=== PATIENT | female | born 1940 | race Caucasian/White ===

== ENCOUNTER 2017-06-19 03:48 | Inpatient (IN) | payer OTHER ==
[~2017-06-19] VITALS: Ht 165.1 cm; Wt 74.4 kg
[2017-06-19] VITALS (16 sets, daily range): BP systolic 110–176; BP diastolic 53–75
[~2017-06-19 03:48] MED LIST: ADVAIR 250-501 EACH INH; ALBUTEROL INHAL17 GM IH; AMITRIPTYLINE H25 M2 PO; AVELOX 400 MG400 M1 PO; B-100 COMPLEX1 EAC1 PO; COUMADIN7.5 MG; ELAVIL PO; ENOXAPARIN60 MG/0.6; FLEXERIL PO; HYDROCODON-ACE1 EAC3; HYDROCODON-ACE1 EAC5 PO; IRON159 MG; K-DUR10 MEQ PO; LOSARTAN-HCTZ1 EAC1 PO; LYRICA 75 MG CA75 MG PO; MICARDIS40 MG PO; MULTIVITAMINS; NORCO 5-325 TA1 EACH PO; OMEPRAZOLE 20 M20 M1 PO; PERCOCET 5-3251 EACH PO; PREDNISONE 20 M20 M1 PO; PREDNISONE50 MG PO; PROAIR HFA8.5 GM INH; SEVELLA; SLOW FE142 MG PO; TIZANIDINE HCL2 M1 PO; XANAX 0.25 MG0.25 MG PO; XANAX 0.5 MG0.5 M1 PO; ZOLOFT; ZOLOFT 50 MG TA50 MG PO
[2017-06-19] MEDS ORDERED: VANCOCIN 250 M250 M1 PO (04:06)
[2017-06-19] MEDS ORDERED: SYMBICORT160 MCG/4. INH (04:07)
[2017-06-19] MEDS ORDERED: ASPIRIN81 M2 (04:08)
[2017-06-19] MEDS ORDERED: CELEXA20 MG PO (04:08)
[2017-06-19] MEDS ORDERED: BAYER CHEWABLE81 MG PO (04:09)
[2017-06-19] MEDS ORDERED: NORVASC5 MG PO (04:10)
[2017-06-19] MEDS ORDERED: SPIRIVA INH (04:11)
[2017-06-19] MEDS ORDERED: LIPITOR 20 MG T20 M1 PO (04:12)
[2017-06-19] MEDS ORDERED: FLORANEX TABLE1 EACH PO (04:13)
[2017-06-19] MEDS ORDERED: POTASSIUM20 (04:14)
[2017-06-19] MEDS ORDERED: COREG6.25 MG PO (04:15)
[2017-06-19] MEDS ORDERED: UNICOMPLEX M TA1 TA1 PO (04:16)
[2017-06-19] MEDS ORDERED: BUMETANIDE0.25 MG/1 PO (04:19)
[2017-06-19 04:22] LABS: INFLUENZA A ANTIGEN None Detected (None Detect); INFLUENZA B ANTIGEN None Detected (None Detect)
[2017-06-19 04:28] LABS: HCO3 35.4 mmol/L (22.0-26.0); PO2 83.1 mmHg (75.0-100.0)
[2017-06-19 04:30] LABS: HEMATOCRIT 35.1 % (37.0-47.0); HEMOGLOBIN 11.1 gm/dL (12.0-15.0); MCH 30.9 pg (26.0-34.0); MCHC 31.7 g/dL (28.0-37.0); MCV 97.4 fL (80.0-100.0); MPV 8.4 fl. (7.2-11.1); NUCLEATED RBCS 0 /100WBC; PLATELET COUNT* 301 thou/uL (150-400); RDW-CV 15.9 % (10.5-14.5); WBC 13.9 thou/uL (4.0-11.0)
[2017-06-19 04:33] LABS: pH 7.222 (7.340-7.450)
[2017-06-19 04:39] LABS: ANION GAP 3 mmol/L (7-16); BUN 9 mg/dL (7-18); CALCIUM 8.3 mg/dL (8.5-10.1); CHLORIDE 100 mmol/L (98-107); CO2 35 mmol/L (21-32); CREATININE 0.6 mg/dL (0.6-1.3); GLUCOSE 152 mg/dL (70-99); POTASSIUM 4.6 mmol/L (3.5-5.1); SODIUM 138 mmol/L (136-145)
[2017-06-19 04:50] LABS: ALBUMIN 3.1 g/dL (3.4-5.0); ALKALINE PHOSPHATASE 81 U/L (46-116); NT-PRO BRAIN NAT PEPTIDE 386 pg/mL (<300); SGOT 23 U/L (15-37); SGPT 27 U/L (30-65); TOTAL BILIRUBIN 0.2 mg/dL (<0.1-1.0); TOTAL PROTEIN 6.6 g/dL (6.4-8.2); TROPONIN-I LEVEL <0.06 ng/mL (<0.06)
[2017-06-19 05:12] LABS: ABSOLUTE EOSINOPHILS 0.1 thou/uL (0.0-0.7); ABSOLUTE LYMPHOCYTES 0.7 thou/uL (0.8-5.3); ABSOLUTE MONOCYTES 0.7 thou/uL (0.0-1.2); ABSOLUTE NEUTROPHILS 12.4 thou/uL (1.6-8.1); PLATELET ESTIMATE ADEQUATE
[2017-06-19 11:23] LABS: URINE BILIRUBIN NEGATIVE (Negative); URINE BLOOD 1+ (Negative); URINE CLARITY CLEAR; URINE COLOR YELLOW; URINE GLUCOSE-RANDOM NEGATIVE (Negative); URINE KETONES NEGATIVE (Negative); URINE LEUKOCYTES-REFLEX NEGATIVE (Negative); URINE NITRITE-REFLEX NEGATIVE (Negative); URINE PROTEIN 1+ (Negative); URINE SPECIFIC GRAVITY 1.015 (1.005-1.030); URINE UROBILINOGEN 0.2 E.U./dl (0.2-1.0)
[2017-06-19 11:30] LABS: BACTERIA-REFLEX 1-9 Few /HPF (None Seen); HYALINE CASTS 0-3 Few /LPF (None Seen); MUCUS 0-3 Light strn/LPF (None Seen); SQUAMOUS 0-3 Few /LPF (0-3); URINE RBC 3-10 Few /HPF (0-2); URINE WBC-REFLEX 0-5 Rare /HPF (0-5)
[2017-06-19 11:31] LABS: CRYSTALS None Seen /LPF (None Seen)
[2017-06-19 11:36] LABS: BE 1.3 mmol/L (-2 to +3); HCO3 30.3 mmol/L (22.0-26.0); PO2 102.2 mmHg (75.0-100.0)
[2017-06-19 11:38] LABS: pH 7.245 (7.340-7.450)
[2017-06-19 11:39] LABS: PCO2 71.4 mmHg (35.0-45.0)
[2017-06-20] VITALS (7 sets, daily range): BP systolic 125–173; BP diastolic 53–91
[2017-06-20 04:07] LABS: ABSOLUTE LYMPHOCYTES 0.5 thou/uL (0.8-5.3); ABSOLUTE MONOCYTES 0.1 thou/uL (0.0-1.2); ABSOLUTE NEUTROPHILS 5.1 thou/uL (1.6-8.1); BASOPHILS 0.1 %; HEMATOCRIT 30.4 % (37.0-47.0); HEMOGLOBIN 9.9 gm/dL (12.0-15.0); MCH 31.5 pg (26.0-34.0); MCHC 32.6 g/dL (28.0-37.0); MCV 96.4 fL (80.0-100.0); MONOCYTES 2.2 %; MPV 8.3 fl. (7.2-11.1); NUCLEATED RBCS 0 /100WBC; PLATELET COUNT* 257 thou/uL (150-400); POLYS 89.7 %; RBC 3.16 mil/uL (4.20-5.00); RDW-CV 15.9 % (10.5-14.5); WBC 5.7 thou/uL (4.0-11.0)
[2017-06-20 04:09] LABS: CALCIUM 8.8 mg/dL (8.5-10.1); CREATININE 0.6 mg/dL (0.6-1.3); POTASSIUM 4.4 mmol/L (3.5-5.1)
--- NOTE | 2017-06-20 07:52 | CON ---
[address] [address] CONSULTATION Name: YOUMARIPOSAJohn LUA Room: [address] IN .R.#: [id number] Admission: 06/19/17 Attend Phys: Payam Mendez MD Discharge: Date of : 40 Report #: [id number] THIS REPORT FOR: //name// CC: Payam Andrade HISTORY OF PRESENT ILLNESS: The patient is a 77-year-old woman who has a history of severe COPD, was brought in with complaints of increasing shortness of breath. She had some nausea at home. I did see the patient this morning. The family currently is not available. The patient is very sleepy, keeps falling asleep, feeling not able to participate. According to the notes, she apparently was hospitalized recently with pneumonia and COPD exacerbation. This was back in April. He was also treated for C. difficile colitis. She was just diagnosed again with pneumonia and was started on some outpatient antibiotics. She is having some nausea, was brought into Emergency Department, was seen there. According to the ED notes, was extremely lethargic. She was on a couple of liters of oxygen. Arterial blood gases did reveal marked hypercapnia with a pCO2 of 88, with a pH of 7.22 on 4 liters. Subsequently, she did have a CT angiogram done of her chest. It shows emphysematous changes. No pulmonary emboli were noted. She was placed in the Intensive Care Unit. She was on BiPAP. At the time I saw her, they have taken off the BiPAP in the hope she could take some breakfast. Again, she is not very responsive. Dr. Mendez's notes indicate that apparently she has been on hospice care. It is not clear if that was active or not. She has also been in [place] recently, not clear hospital stay was there or not. She does have a history of COPD. History also of hypertension, prior history of pulmonary emboli, was on chronic anticoagulation therapy. She also has a history of lung cancer which was diagnosed in 2011. It is not clear what treatment she did undergo. MEDICATIONS: Information I have currently available, it appears her medications at home are potassium, p.r.n. alprazolam, Lyrica, p.r.n. hydrocodone, oral vancomycin, Symbicort 160/4.5 two puffs twice a day, Celexa, aspirin, Spiriva, Norvasc, Lipitor, acidophilus, Coreg, Bumex. It does not appear she is on anticoagulation therapy at this time. ALLERGIES: CODEINE. SOCIAL HISTORY: Does have a history of tobacco abuse. Unknown if she was still smoking or not. In 2012, she had been up to 3 packs of cigarettes per day. FAMILY HISTORY: Unable to obtain from the patient. REVIEW OF SYSTEMS: Unable [place] [address] CONSULTATION Name: MARIPOSA ORTA Room: [address] IN [facility]#: [id number] Admission: 06/19/17 Attend Phys: Payam Mendez MD Discharge: Date of : 40 Report #: [id number] PHYSICAL EXAMINATION: GENERAL: Appearance of an elderly woman. She is extremely lethargic. She is in no acute distress. Does keep falling asleep when stimulated. She is on O2 via nasal cannula. SKIN: Warm and dry. O2 saturations in the high 90s, heart rates in the low 70s. She is an elderly woman. No acute distress. HEENT: Head is normocephalic. Mucous membranes do look dry. NECK: Negative for adenopathy. HEART: Tones are distant, but appear regular. She has a grade 2/6 systolic murmur. No S3 is heard. LUNGS: Show breath sounds to be diminished. She does look kyphotic. Has a few bibasilar crackles. Prolonged expiratory phase. She does have expiratory wheezes heard. ABDOMEN: Soft. Does not appear to have any hepatosplenomegaly. No guarding or rebound tenderness. EXTREMITIES: Thin without edema. Does have some muscle wasting. No clubbing. Pulses are present. NEUROLOGIC: She is extremely lethargic. We will spontaneously move her extremities. LABORATORY AND X-RAY FINDINGS: Studies were reviewed. I did have a CT angiogram done of her chest. No pulmonary emboli were noted, however, she does have respiratory motion noted. Does have enlargement of the pulmonary arteries noted suggesting that she did have some pulmonary artery hypertension. Emphysematous changes are noted. Evidence of old calcified granulomatous disease. She does have some atelectatic changes seen in left lower lobe area. On her chemistry, her BUN is 9, creatinine 0.6, potassium 4.6, sodium 138. ProBNP 388. Troponins unremarkable. Albumin 3.1. No coag studies done. White blood cell count 13,900, hemoglobin 11.1, hematocrit 35.1, platelets are normal. Influenza screen was negative. Arterial blood gases done this morning on 4 liters prior to going on BiPAP, she had a pH 7.22, pCO2 of 88, pO2 of 83, bicarbonate is 35, with a saturation of 93%. Blood cultures have been sent. IMPRESSION: 1. Acute respiratory failure, superimposed on chronic respiratory failure. May have a lower respiratory tract infection. Early pneumonia is possible. May also have a viral infection. 2. Chronic obstructive pulmonary disease, based on history does appear to have severe disease. Long-term prognosis is guarded. 3. History of lung cancer diagnosed in 2011. Path at that time showed a poorly differentiated malignancy. Details of any treatment not clear nor available. 4. Anemia. 5. Overall appears prognosis certainly guarded. She is a do not resuscitate. Reportedly, has been on hospice care at one point. It is not clear if [place] [address] CONSULTATION Name: MARIPOSA ORTA Room: [address] IN [facility].#: [id number] Admission: 06/19/17 Attend Phys: Payam Mendez MD Discharge: Date of : 40 Report #: [id number] RECOMMENDATIONS: 1. Continue IV steroids and inhaled bronchodilator therapy. 2. We will also add inhaled Brovana since she was on Symbicort at home. 3. Follow up blood gases on the BiPAP. 4. Okay with me to transfer out of the Intensive Care Unit. Since she is a DNR, is not to be intubated, could probably meet her needs on the floor. 5. Depending on how she does, may need to revisit goals of care. <ELECTRONICALLY SIGNED> By: Charity Back MD 06/20/17 0752 [id number] [id number] Back, /lacy
[2017-06-20 10:08] LABS: HCO3 28.5 mmol/L (22.0-26.0); PCO2 42.4 mmHg (35.0-45.0); pH 7.445 (7.340-7.450)
[2017-06-20 10:16] LABS: PO2 59.2 mmHg (75.0-100.0)
--- NOTE | 2017-06-20 15:34 | EKG ---
[place] [address] ELECTROCARDIOGRAM REPORT Name: MARIPOSA ORTA Room: [address] ADM IN .R.#: [id number] Admission: 06/19/17 Attend Phys: Payam Mendez MD Discharge: Date of : 40 Report #: [id number] THIS REPORT FOR: //name// [facility] ED Test Date: 2017-06-19 Test Time: 04:01:16 Pat Name: MARIPOSA ORTA Department: Room: [facility] Gender: F Pull Over: BD : 1940 Requested By: Ro Granado Order Number: [id number] MD: Edwin Villa Measurements Intervals [place] Rate: 96 P: 80 [place]: 202 QRS: -6 QRSD: 130 T: 151 QT: 357 QTc: 452 Interpretive Statements Sinus rhythm Left bundle branch block Compared to ECG 01/15/2012 12:49:38 Left bundle-branch block now present Electronically Signed On 06-20-2017 15:34:30 PLASTERER JOURNEYMAN by Edwin Villa [email or web address] <ELECTRONICALLY SIGNED> By: Edwin Villa MD, FACC 06/20/17 1534 0401 0401 Edwin Villa MD, [facility] /EPI
[2017-06-21] VITALS: BP 139/70
[2017-06-21 04:00] VITALS: BP 142/76
[2017-06-21 04:53] LABS: ABSOLUTE LYMPHOCYTES 0.5 thou/uL (0.8-5.3); ABSOLUTE MONOCYTES 0.2 thou/uL (0.0-1.2); ABSOLUTE NEUTROPHILS 6.6 thou/uL (1.6-8.1); BASOPHILS 0.1 %; HEMATOCRIT 29.9 % (37.0-47.0); HEMOGLOBIN 9.9 gm/dL (12.0-15.0); LYMPHOCYTES 6.9 %; MCH 31.6 pg (26.0-34.0); MCHC 33.1 g/dL (28.0-37.0); MCV 95.3 fL (80.0-100.0); MONOCYTES 2.8 %; MPV 8.4 fl. (7.2-11.1); NUCLEATED RBCS 0 /100WBC; PLATELET COUNT* 260 thou/uL (150-400); POLYS 90.2 %; RBC 3.14 mil/uL (4.20-5.00); RDW-CV 15.9 % (10.5-14.5); WBC 7.4 thou/uL (4.0-11.0)
[2017-06-21 04:54] LABS: CALCIUM 8.9 mg/dL (8.5-10.1); CREATININE 0.6 mg/dL (0.6-1.3); POTASSIUM 4.2 mmol/L (3.5-5.1)
[2017-06-21 08:30] VITALS: BP 173/77
[2017-06-21 11:25] VITALS: BP 154/88
[2017-06-21 16:00] VITALS: BP 158/73
[2017-06-21 20:30] VITALS: BP 164/66
[2017-06-22] VITALS (7 sets, daily range): BP systolic 127–181; BP diastolic 59–87
[2017-06-22 04:45] LABS: ABSOLUTE LYMPHOCYTES 0.4 thou/uL (0.8-5.3); ABSOLUTE MONOCYTES 0.2 thou/uL (0.0-1.2); ABSOLUTE NEUTROPHILS 5.7 thou/uL (1.6-8.1); BASOPHILS 0.1 %; HEMATOCRIT 32.9 % (37.0-47.0); HEMOGLOBIN 10.7 gm/dL (12.0-15.0); LYMPHOCYTES 6.3 %; MCH 31.1 pg (26.0-34.0); MCHC 32.4 g/dL (28.0-37.0); MCV 95.7 fL (80.0-100.0); MONOCYTES 3.1 %; MPV 8.2 fl. (7.2-11.1); NUCLEATED RBCS 0 /100WBC; PLATELET COUNT* 277 thou/uL (150-400); POLYS 90.5 %; RBC 3.44 mil/uL (4.20-5.00); RDW-CV 15.8 % (10.5-14.5); WBC 6.3 thou/uL (4.0-11.0)
[2017-06-22 05:09] LABS: CALCIUM 8.6 mg/dL (8.5-10.1); CREATININE 0.6 mg/dL (0.6-1.3)
[2017-06-23] VITALS: BP 142/68
[2017-06-23 02:08] LABS: ADENOVIRUS Negative (Negative); INFLUENZA A Negative (Negative); INFLUENZA B Negative (Negative); METAPNEUMOVIRUS Negative (Negative); PARAINFLUENZA 1 Negative (Negative); PARAINFLUENZA 2 Negative (Negative); PARAINFLUENZA 3 Negative (Negative); RHINOVIRUS Negative (Negative); RSV A Negative (Negative); RSV B Negative (Negative)
[2017-06-23 03:51] VITALS: BP 146/60
[2017-06-23 07:30] VITALS: BP 162/87
[2017-06-23] MEDS ORDERED: LISINOPRIL20 MG PO (09:12)
[2017-06-23] MEDS ORDERED: PROTONIX40 M2 PO (09:13)
[2017-06-23 11:30] VITALS: BP 137/65
[2017-06-23] MEDS ORDERED: PREDNISONE 10 M10 MG PO (13:32)
[2017-06-23] MEDS ORDERED: PROTONIX40 M3 PO (14:22)
[2017-06-23 14:27] VITALS: BP 137/65
== END 2017-06-23 16:40 | disposition home or self-care (01) | DRG 177 ==
LOC: M.ERS 03:48 → M.TBA-ER 05:04 → M.2W 05:04 → M.ICU 07:22 → M.2W 06-20 06:08
PROVIDERS: Emergency Medicine; Internal Medicine Pulmonary Disease; ADMIT Internal Medicine
PROC: 5A09357 Assistance with Respiratory Ventilation, Less than 24 Consecutive Hours, Continuous Positive Airway Pressure (ICD-10-PCS; principal; 2017-06-19)
PROC: 5A09357 Assistance with Respiratory Ventilation, Less than 24 Consecutive Hours, Continuous Positive Airway Pressure (ICD-10-PCS; 2017-06-20)
PROC: 5A09357 Assistance with Respiratory Ventilation, Less than 24 Consecutive Hours, Continuous Positive Airway Pressure (ICD-10-PCS; 2017-06-21)
DX: J15.6 Pneumonia due to other Gram-negative bacteria (principal); J96.20 Acute and chronic respiratory failure, unspecified whether with hypoxia or hypercapnia; E87.2 Acidosis; R65.10 Systemic inflammatory response syndrome (SIRS) of non-infectious origin without acute organ dysfunction; J44.0 Chronic obstructive pulmonary disease with (acute) lower respiratory infection; I10 Essential (primary) hypertension; G62.9 Polyneuropathy, unspecified; D64.9 Anemia, unspecified; I27.20 Pulmonary hypertension, unspecified; Z66 Do not resuscitate; Z99.81 Dependence on supplemental oxygen; Z79.82 Long term (current) use of aspirin; Z79.899 Other long term (current) drug therapy; Z90.711 Acquired absence of uterus with remaining cervical stump; Z88.6 Allergy status to analgesic agent; Z85.118 Personal history of other malignant neoplasm of bronchus and lung; Z86.711 Personal history of pulmonary embolism; Z72.0 Tobacco use

== ENCOUNTER 2017-08-08 08:53 | Inpatient (IN) | payer OTHER, MEDICAID ==
[~2017-08-08] VITALS: Ht 170.2 cm; Wt 73.6 kg
[~2017-08-08 08:53] MED LIST changes: +ASPIRIN81 M2; +BAYER CHEWABLE81 MG PO; +BUMETANIDE0.25 MG/1 PO; +CELEXA20 MG PO; +COREG6.25 MG PO; +FLORANEX TABLE1 EACH PO; +LIPITOR 20 MG T20 M1 PO; +LISINOPRIL20 MG PO; +NORVASC5 MG PO; +POTASSIUM20; +PREDNISONE 10 M10 MG PO; +PROTONIX40 M2 PO; +PROTONIX40 M3 PO; +SPIRIVA INH; +SYMBICORT160 MCG/4. INH; +UNICOMPLEX M TA1 TA1 PO; +VANCOCIN 250 M250 M1 PO
[2017-08-08 08:55] VITALS: BP 128/78
[2017-08-08 09:21] LABS: BE 9.3 mmol/L (-2 to +3); HCO3 37.3 mmol/L (22.0-26.0); PCO2 70.2 mmHg (35.0-45.0); pH 7.343 (7.340-7.450)
[2017-08-08 09:22] LABS: PO2 59.4 mmHg (75.0-100.0)
[2017-08-08 09:31] LABS: ABSOLUTE EOSINOPHILS 0.1 thou/uL (0.0-0.7); ABSOLUTE LYMPHOCYTES 0.6 thou/uL (0.8-5.3); ABSOLUTE MONOCYTES 0.6 thou/uL (0.0-1.2); ABSOLUTE NEUTROPHILS 4.2 thou/uL (1.6-8.1); BASOPHILS 0.8 %; EOSINOPHILS 2.2 %; HEMOGLOBIN 10.8 gm/dL (12.0-15.0); LYMPHOCYTES 10.6 %; MCH 32.6 pg (26.0-34.0); MCHC 32.8 g/dL (28.0-37.0); MCV 99.6 fL (80.0-100.0); MONOCYTES 11.4 %; MPV 8.4 fl. (7.2-11.1); NUCLEATED RBCS 0 /100WBC; PLATELET COUNT* 266 thou/uL (150-400); RBC 3.31 mil/uL (4.20-5.00); RDW-CV 14.3 % (10.5-14.5); WBC 5.6 thou/uL (4.0-11.0)
[2017-08-08 09:38] LABS: ANION GAP < 0 mmol/L (7-16); BUN 7 mg/dL (7-18); CALCIUM 8.6 mg/dL (8.5-10.1); CHLORIDE 103 mmol/L (98-107); CO2 39 mmol/L (21-32); CREATININE 0.5 mg/dL (0.6-1.3); GLUCOSE 96 mg/dL (70-99); INR 0.9; POTASSIUM 4.4 mmol/L (3.5-5.1); SODIUM 139 mmol/L (136-145)
[2017-08-08] MEDS ORDERED: PROTONIX 20 MG20 M1 PO (09:41)
[2017-08-08] MEDS ORDERED: CARVEDILOL12.5 MG PO (09:41)
[2017-08-08] MEDS ORDERED: PROAIR HFA8.5 GM INH (09:42)
[2017-08-08] MEDS ORDERED: PROBIOTIC1 EAC4 PO (09:42)
[2017-08-08 09:49] LABS: ALBUMIN 2.9 g/dL (3.4-5.0); ALKALINE PHOSPHATASE 67 U/L (46-116); LIPASE 157 U/L (73-393); NT-PRO BRAIN NAT PEPTIDE 319 pg/mL (<300); SGOT 20 U/L (15-37); SGPT 16 U/L (30-65); TOTAL BILIRUBIN 0.2 mg/dL (<0.1-1.0); TOTAL PROTEIN 6.4 g/dL (6.4-8.2); TROPONIN-I LEVEL <0.06 ng/mL (<0.06)
[2017-08-08 10:57] LABS: URINE BILIRUBIN NEGATIVE (Negative); URINE BLOOD NEGATIVE (Negative); URINE CLARITY CLEAR; URINE COLOR YELLOW; URINE GLUCOSE-RANDOM NEGATIVE (Negative); URINE KETONES NEGATIVE (Negative); URINE LEUKOCYTES-REFLEX NEGATIVE (Negative); URINE NITRITE-REFLEX NEGATIVE (Negative); URINE PROTEIN NEGATIVE (Negative); URINE SPECIFIC GRAVITY 1.015 (1.005-1.030); URINE UROBILINOGEN 0.2 E.U./dl (0.2-1.0)
[2017-08-08 12:14] VITALS: BP 131/66
[2017-08-08 12:25] VITALS: BP 152/76
--- NOTE | 2017-08-08 18:23 | NUR ---
PATIENT ARRIVED FROM ER THIS AFTERNOON. PATIENT SETTLED TO ROOM. PATIENT IS CONFUSED. HISTORY OBTAINED FROM DAUGHTERS. ASSESSMENT AND VITALS COMPLETED AND DOCUMENTED. PATIENT DENIES ANY PAIN. PATIENT IS ON BIPAP AND HAS BEEN COMPLIANT WITH IT. PATIENT DID EAT SMALL AMOUNT OF DINNER AND WAS ON 4L/NC DURING THAT TIME. PATIENT HAS BEEN UP STANDBY ASSIST TO COMMODE. PATIENT DENIES ANY NEEDS AT THIS TIME. CALL LIGHT WITHIN REACH. WILL CONTINUE TO MONITOR.
[2017-08-09] VITALS: BP 156/95
[2017-08-09 04:00] VITALS: BP 182/101
[2017-08-09 04:49] LABS: HEMATOCRIT 36.5 % (37.0-47.0); MCH 32.1 pg (26.0-34.0); MCV 97.2 fL (80.0-100.0); MPV 9.2 fl. (7.2-11.1); RBC 3.75 mil/uL (4.20-5.00); RDW-CV 14.3 % (10.5-14.5); WBC 4.3 thou/uL (4.0-11.0)
[2017-08-09 04:56] LABS: ALBUMIN 3.2 g/dL (3.4-5.0); CALCIUM 9.6 mg/dL (8.5-10.1); CREATININE 0.5 mg/dL (0.6-1.3); MAGNESIUM 1.7 mg/dL (1.8-2.4); POTASSIUM 4.2 mmol/L (3.5-5.1); TOTAL BILIRUBIN 0.3 mg/dL (<0.1-1.0); TOTAL PROTEIN 6.5 g/dL (6.4-8.2)
--- NOTE | 2017-08-09 06:17 | EKG ---
[place] [address] ELECTROCARDIOGRAM REPORT Name: OYUMARIPOSA HOBSON Room: [address] ADM IN .R.#: [id number] Admission: 08/08/17 Attend Phys: Roxanne Tidwell MD Discharge: Date of : 40 Report #: [id number] THIS REPORT FOR: //name// [facility] ED Test Date: 2017-08-08 Test Time: 08:57:33 Pat Name: MARIPOSA ORTA Department: Room: [facility] Gender: F Associate Director Of Development: Piotr DOWLING : 1940 Requested By: Valentino Ashley Order Number: [id number] MD: Edwin Villa Measurements Intervals [place] Rate: 87 P: 38 [place]: 170 QRS: -18 QRSD: 131 T: 147 QT: 381 QTc: 459 Interpretive Statements Sinus rhythm Atrial premature complex Left bundle branch block Compared to ECG 06/19/2017 04:01:16 Atrial premature complex(es) now present Electronically Signed On 08-09-2017 6:17:34 BATTERY INSTALLER by Edwin Villa [email or web address] <ELECTRONICALLY SIGNED> By: Edwin Villa MD, FACC 08/09/17 0617 0857 0857 Edwin Villa MD, FAC /EPI
--- NOTE | 2017-08-09 07:16 | CON ---
[address] [address] CONSULTATION Name: MARIPOSA ORTA Room: [address] IN M.R.#: [id number] Admission: 08/08/17 Attend Phys: Roxanne Tidwell MD Discharge: Date of : 40 Report #: [id number] THIS REPORT FOR: //name// CC: Roxanne Andrade DATE OF SERVICE: 08/08/2017 ATTENDING PHYSICIAN: Roxanne Tidwell MD LOCATION: Room [facility]. INDICATION FOR CONSULTATION: Acute hypercarbic respiratory failure, COPD, oxygen dependent. HISTORY OF PRESENT ILLNESS: The patient is a 77-year-old female who has been on oxygen at home at 3 liters for the last 3-4 years. She has been more short of breath for the last 2 weeks, it appears. She was admitted on 06/19 and then discharged home right around from Dr. Bcak' service. The patient was on a prednisone taper and also on oxygen and inhaled bronchodilators. Not certain how compliant the patient was. The patient's daughters found her smoking cigarettes in the bathroom over the past several days. The patient tells me she has been off cigarettes for the last 2-3 months. She is more short of breath for the last several days. Denies any cough or purulent sputum. She has been more short of breath and wheezing. She does feel more comfortable on the BiPAP machine at this time. I was asked to see her. She has no sick or ill contacts. No flu contacts. She states she is up to date on her flu shots and/or pneumonia shots. PAST MEDICAL HISTORY: She has a history of CO2 retention, respiratory failure. When she was in on 06/19, she was on BiPAP. She did not get sent home on Trilogy. She states she would not be compliant with this. She is on oxygen at 3 L at home. ALLERGIES: SHE HAS ALLERGIES OR INTOLERANCE TO CODEINE. CURRENT MEDICATIONS: Include alprazolam 0.5 mg t.i.d. p.r.n. agitation, potassium chloride, K-Dur 1 tablet daily, pregabalin or Lyrica 75 mg daily, iron 65 mg p.o. daily, vancomycin 125 mg p.o. daily, citalopram 20 mg b.i.d., aspirin chewable is 81 mg a day, Bumex 2.5 mg in 10 mL aerosolized p.r.n. shortness of air, also on Protonix 20 mg daily, also carvedilol 6.25 mg b.i.d., albuterol sulfate, ProAir inhaler 2 puffs 3-4 times a day, Lactobacillus probiotic 1 capsule daily. She is off hydrocodone, budesonide, Symbicort, atorvastatin, lisinopril [place] [address] CONSULTATION Name: MARIPOSA ORTA Room: [address] IN [facility]#: [id number] Admission: 08/08/17 Attend Phys: Roxanne Tidwell MD Discharge: Date of : 40 Report #: [id number] FAMILY HISTORY: Negative for premature cardiopulmonary disease. PAST MEDICAL HISTORY: She had pneumonia, COPD in 05/2017 around 06/19. She has had a remote history of lung cancer. She has even had radiation or chemotherapy to either side of her lung sometime in 2011. Also has a remote history of pulmonary emboli. Again, I am not sure the particulars. FAMILY HISTORY: Negative for premature cardiopulmonary disease. SOCIAL HISTORY: She lives with her daughters. She has been on hospice. She is a DNI, no intubation. She may want a brief CPR, defibrillation noted. REVIEW OF SYSTEMS: A 14-point review of systems was reviewed and negative except for pertinent positives noted in HPI. PHYSICAL EXAMINATION: GENERAL: This is a slightly confused 77-year-old female who is leaving her BiPAP on. VITAL SIGNS: Blood pressure is 130/66 on no pressors, heart rate 72, respirations 14 over backup rate of 14, O2 sat on 35% is 93%. She is afebrile, temperature 37.2 degrees. HEENT: Unremarkable. Nares and pharynx otherwise is clear. NECK: Supple without nodes. No increase in jugular venous pressure. CHEST: Reveals markedly diminished breath sounds, prolonged expiratory phase. CARDIOVASCULAR: Regular rate and rhythm without murmur, gallop or rub. Heart rate is 72. ABDOMEN: Soft without masses or megaly. EXTREMITIES: Without cyanosis, clubbing or edema. NEUROLOGIC: Grossly intact, although she is slightly confused. LABORATORY DATA: Hemoglobin is 10.8, white count 5600, normal differential that is from this morning at 9:10 a.m. and CBC is within normal limits. Chemistry is also within normal limits. Sodium 139, potassium is 4.4, bicarbonate is 39, anion gap is less than 0.1, BUN is 7, creatinine 0.5. ALT is 16, which is low. Anti-proBNP is 319, slightly elevated and albumin is 2.9, which is low. Coags are unremarkable. Urine is negative. ABGs done around 9:00 a.m. this morning on 5 liters showed a pO2 of 59, pH 7.35, pCO2 is 70, bicarbonate is 37 and a sat of 89%. Chest x-ray shows COPD and hyperinflation. I do not have any PFTs on her she is in the severe obstructive defect. Keep her on 35% Ventimask or 35% BiPAP. Check some blood gases in the morning. Hopefully, if she is better, she Ventimask and we will not have to see her too often and see if we can get rid of her BiPAP mask and see if she will tolerate a 35% Ventimask. Then after figure out some home strategy, probably going to need every other day steroid taper or some therapy at home to help her out. Her overall [place] [address] CONSULTATION Name: MARIPOSA ORTA Room: [address] IN [facility]#: [id number] Admission: 08/08/17 Attend Phys: Roxanne Tidwell MD Discharge: Date of : 40 Report #: [id number] Thanks again for allowing us to participate in this lady's care. We will follow up along with you while she is in the hospital here. <ELECTRONICALLY SIGNED> By: Charity Back MD 08/09/17 0716 1509 [id number] Murry MD /lacy
[2017-08-09 08:11] VITALS: BP 184/100
[2017-08-09 10:07] LABS: BE 3.3 mmol/L (-2 to +3); HCO3 26.2 mmol/L (22.0-26.0); PCO2 34.1 mmHg (35.0-45.0); pH 7.503 (7.340-7.450)
[2017-08-09 12:06] VITALS: BP 162/83
[2017-08-09 14:35] LABS: BE 6.4 mmol/L (-2 to +3); HCO3 30.1 mmol/L (22.0-26.0); PCO2 39.9 mmHg (35.0-45.0); pH 7.496 (7.340-7.450)
[2017-08-09 14:41] LABS: PO2 59.3 mmHg (75.0-100.0)
[2017-08-09 14:50] VITALS: BP 139/70
--- NOTE | 2017-08-09 15:46 | NUR ---
SW met with pt and pt dtr Litzy to complete initial assessment, introduce self, and SW role. Pt and pt dtr want pt to dc to LTC either [facility] or [facility]. Pt and pt family have history with [facility] care but do not want to have hospice care at all at dc and pt dtr reports that she and her sisters will be checking on pt more often. Pt family requests to be able to provide pt transportation to LTC home. SW to send referrals and continue to follow to assist with safe dc planning.
--- NOTE | 2017-08-09 19:51 | NUR ---
PATIENT RESTING IN BED. PATIENT IS ON VENTIMASK AT 40% WITH O2 SAT AT 91-92%. PATIENT HAS BEEN UP TO COMMODE STANDBY ASSIST. PATIENT HAS BEEN UP TO SIDE OF BED FOR MEALS. PATIENT HAS POOR APPETITE. PATIENT HAS COMPLAINTS OF LEG PAIN TREATED ADEQUATELY WITH MEDICATION. PATIENT HAS USED CALL LIGHT APPROPRIATLEY. PATIENT DENIES ANY NEEDS AT THIS TIME. CALL LIGHT WITHIN REACH. WILL CONTINUE TO MONITOR.
[2017-08-09 20:00] VITALS: BP 137/72
[2017-08-10] VITALS (7 sets, daily range): BP systolic 123–161; BP diastolic 55–79
[2017-08-10 03:55] LABS: HEMATOCRIT 35.8 % (37.0-47.0); HEMOGLOBIN 11.8 gm/dL (12.0-15.0); MCHC 33.1 g/dL (28.0-37.0); MCV 96.6 fL (80.0-100.0); MPV 8.9 fl. (7.2-11.1); RBC 3.7 mil/uL (4.20-5.00); RDW-CV 14.1 % (10.5-14.5); WBC 7.1 thou/uL (4.0-11.0)
[2017-08-10 04:46] LABS: ALBUMIN 3.1 g/dL (3.4-5.0); CALCIUM 9.3 mg/dL (8.5-10.1); CREATININE 0.7 mg/dL (0.6-1.3); POTASSIUM 4.3 mmol/L (3.5-5.1); TOTAL BILIRUBIN 0.2 mg/dL (<0.1-1.0); TOTAL PROTEIN 6.1 g/dL (6.4-8.2)
--- NOTE | 2017-08-10 05:39 | NUR ---
PATIENT ON VENTI MASK UNTIL HS AND TOLERATING WELL. RT PLACED PT ON BIPAP AND PT SLEPT WELL DURING THIS SHIFT. PT WITH SALINE LOCK IN LT FOREARM. PT USES CALL LIGHT APPROPRIATELY FOR ASSISTANCE TO BSC. PT REQUESTED HYDROCODONE AT HS FOR GENERALIZED PAIN AND TO AID IN SLEEP. PT DENIES NEEDS AT THIS TIME. FREQUENTLY USED ITEMS AND CALL LIGHT WITHIN REACH. SIDERAILS UPX4 AND BED ALARM ON. WILL CONTINUE TO MONITOR.
--- NOTE | 2017-08-10 12:02 | NUR ---
KINGSLEY followed up with [facility] and [facility]. Both facilities accepted pt for LTC. KINGSLEY called and spoke with pt dtr Litzy who reported that pt and pt family preference for facility for pt at dc is [facility]. KINGSLEY explained that pt dc possible for tomorrow, Friday 08/11. Pt dtr prepared and said that she and her sister will provide transportation for pt home to [facility]. SW to continue to follow to assist with finalizing safe dc planning.
[2017-08-10 12:56] LABS: BE 7.6 mmol/L (-2 to +3); HCO3 32.5 mmol/L (22.0-26.0); PCO2 47.1 mmHg (35.0-45.0); pH 7.457 (7.340-7.450)
[2017-08-10] MEDS ORDERED: HYDROCODON-ACE1 EAC7 PO (15:36)
[2017-08-10] MEDS ORDERED: OMEPRAZOLE 20 M20 M1 PO (15:37)
--- NOTE | 2017-08-10 19:48 | NUR ---
PATIENT RESTING IN BED. PATIENT IS UP STANDBY ASSIST TO BATHROOM. PATIENT IS ALERT AND ORIENTED, FORGETFUL. PATIENT IS ON 4L/NC. PATIENT HAS FAIR APPETITE. PATIENT HAS COMPLAINTS OF CHRONIC BACK AND LEG PAIN, TREATED ADEQUATELY WITH HYDROCODONE. PATIENT DENIES ANY NEEDS AT THIS TIME. CALL LIGHT WITHIN REACH. WILL CONTINUE TO MONITOR.
[2017-08-11] VITALS (7 sets, daily range): BP systolic 95–156; BP diastolic 46–76
[2017-08-11 04:31] LABS: HEMATOCRIT 34.5 % (37.0-47.0); HEMOGLOBIN 11.2 gm/dL (12.0-15.0); MCH 31.6 pg (26.0-34.0); MCHC 32.5 g/dL (28.0-37.0); MCV 97.1 fL (80.0-100.0); MPV 8.6 fl. (7.2-11.1); RBC 3.55 mil/uL (4.20-5.00); RDW-CV 14.2 % (10.5-14.5); WBC 6.7 thou/uL (4.0-11.0)
[2017-08-11 04:40] LABS: CREATININE 0.6 mg/dL (0.6-1.3); POTASSIUM 4.4 mmol/L (3.5-5.1)
--- NOTE | 2017-08-11 05:27 | NUR ---
PT ALERT AND ORIENTED THIS SHIFT, PT MEDICATED FOR TROUBLE SLEEPING, BACK PAIN, AND NAUSEA THIS SHIFT, PT CONTINUES ON SUPLEMETNAL O2, NOW AT 5L PER NC, CAP NO. STUDY COMPLETED BY RT
[2017-08-11 06:12] LABS: BE 6.3 mmol/L (-2 to +3); HCO3 31.6 mmol/L (22.0-26.0); PCO2 48.2 mmHg (35.0-45.0); PO2 67.7 mmHg (75.0-100.0); pH 7.434 (7.340-7.450)
--- NOTE | 2017-08-11 11:21 | NUR ---
SW called Kanchan with admissions at [facility] ph [phone] and informed pt and pt doctor agreed upon pt to remain in hospital one more day with dc on Monday to [facility]. Report to be called to [address] [place] [address] nurse at [phone] and final orders/med list to fax [phone]. [facility]; the dtrs are available anytime. Pt/dtrs and admissions at [facility] all in agreement with plan.
--- NOTE | 2017-08-11 16:22 | NUR ---
P.T. ORDERS RECEIEVED. CHART REVIEWED. NSG NOTES INDICATE PT UP SBA TO BATHROOM W/O DIFFICULTY. CMGR NOTES INDICATE PT TO DISCHARGE TO LTC TOMORROW. PT'S NURSE TODAY REPORTS PT HAS BEEN UP IN ROOM INDEP W/O CONCERN. ACUTE P.T. INTERVENTION NOT INDICATED FOR DISCHARGE TO LTC. RECOMMEND SKILLED P.T. EVAL AT LTC IF MOBILITY DEFICITS NOTED ON ADMISSION.
--- NOTE | 2017-08-11 17:30 | NUR ---
PATIENT HAS BEEN ALERT AND ORIENTED TDOAY, VERY PLEASANT. FAMILY WAS AT BEDSIDE PART OF THE DAY. IV IN RIGHT FORARM WORKS WELL, TELE MONITOR IN PLACE. VITAL SIGNS STABLE ON 5 LITERS OF OXYGEN THROUGH NASAL CANNULA. HAD SOME COMPLAINTS OF PAIN THAT WAS CONTROLLED WITH ORAL PAIN MEDICATIONS. CALL LIGHT IS IN REACH, WILL CONTINUE TO MONITOR.
[2017-08-12] VITALS (7 sets, daily range): BP systolic 113–134; BP diastolic 56–66
--- NOTE | 2017-08-12 05:20 | NUR ---
ASSUMED CARE OF PT AT 1900 PT ALERT AND ORIENTED X4 VS AND ASSESSMENT STABLE PT VOICED NO COMPLAINTS AND SLEPT THROUGH THE NIGHT. WILL CONTINUE PLAN OF CARE.
[2017-08-12 06:06] LABS: BE 6.3 mmol/L (-2 to +3); HCO3 31.8 mmol/L (22.0-26.0); pH 7.422 (7.340-7.450)
[2017-08-12 06:12] LABS: PO2 58.5 mmHg (75.0-100.0)
--- NOTE | 2017-08-12 19:31 | NUR ---
I ASSUMED CARE OF THE PATIENT AT 0700. SHE IS ALERT AND ORIENTED X4 AND IS UP AD SARA. BED IS IN THE LOW LOCKED POSITION AND CALL LIGHT IS IN REACH. SHE HAS A DECENT APPETITE. SHE HAS A ROOM AT [facility] THAT IS READY FOR HER. OXYGEN HAS BEEN TITRATED DOWN TO 3.5 LITERS. DAUGHTER CALLED AND WE SPOKE ABOUT POSSIBLE DISCHARGE ON MONDAY WHEN SHE IS LESS DEPENDANT OF OXYGEN. HOURLY ROUNDING WAS COMPLETED AND PATIENT NEEDS WERE MET. PAIN AND ANXIETY ARE MANAGED WITH PRN MEDS. SHE IS PROGRESSING TOWARD HER GOALS. WILL CONTINUE TO MONITOR. DAUGHTER WOULD LIKE US TO TRY A MASK AT NIGHT SINCE SHE IS A MOUTH BREATHER.
[2017-08-13 04:20] VITALS: BP 167/82
--- NOTE | 2017-08-13 04:49 | NUR ---
ASSUMED CARE OF PT AT 1900 PT ALERT AND ORIENTED X4 VS AND ASSESSMENT STABLE. PT REQUESTED PRN NORCO AND XANAX SEE MAR. PTS DAUGHTER REQUESTED PT WEAR A O2 MASK OVERNIGHT INSTEAD OF A NC BECUASE SHES A MOUTH BREATHER PER DAUGHTER. RT ATTEMPTED TO PLACE ON VENTI MASK PT REFUSED O2 SAT'S REMAINDED IN THE 90'S ON 3.5L NC OVERNIGHT WILL CONTINUE PLAN OF CARE.
[2017-08-13 07:30] VITALS: BP 147/73
[2017-08-13 09:23] VITALS: BP 147/73
[2017-08-13 11:49] VITALS: BP 101/52
[2017-08-13 15:34] VITALS: BP 118/62
--- NOTE | 2017-08-13 18:53 | NUR ---
ALERT AND ORIENTED X4. UP AD SARA IN ROOM. IV IS PATENT AND SALINE LOCKED. PAIN BEING MANAGED WITH PO PAIN MEDICATION. NAUSEA BEING MANAGED WITH IV NAUSEA MEDICATION. VSS ON 3.5L O2. HOURLY ROUNDS HAVE BEEN MAINTAINED THROUGHOUT SHIFT. CALL LIGHT IS WITHIN REACH. NURSING WILL CONTINUE TO MONITOR.
[2017-08-13 20:05] VITALS: BP 118/60
[2017-08-14] VITALS: BP 122/69
[2017-08-14 04:15] VITALS: BP 117/56
--- NOTE | 2017-08-14 04:24 | NUR ---
PATIENT ALERT AND ORIENTED X4. UP AD SARA IN ROOM. NSR ON TELE MONITOR. HYDROCODONE GIVEN FOR PAIN THROUGHOUT THE NIGHT. O2 SATS 94% ON 3.5 L NC. RECEIVED BREATHING TREATMENTS ORDERED. VITALS STABLE. CONTINUE TO MONITOR.
[2017-08-14 08:00] VITALS: BP 146/61
[2017-08-14 10:18] VITALS: BP 147/73
--- NOTE | 2017-08-14 10:19 | NUR ---
Pt remained in hospital over the weekend and according to dtr, pt was weaning down liters of oxygen needed. DC orders for pt to be able to dc today. KINGSLEY called [facility] and spoke with cloth carrier who was accepting of referral. Pt dtr plans to provide transportation to [facility] and pt dtr confirmed that she will have oxygen available for the ride. Pt dtr to [facility] pt between noon and 1pm. KINGSLEY faxed final orders and med list to [facility] at fax #[phone].
[2017-08-14] MEDS ORDERED: PREDNISONE 10 M10 MG PO (10:55)
[2017-08-14] MEDS ORDERED: LEVAQUIN 500 M500 M2 PO (10:56)
[2017-08-14] MEDS ORDERED: FLONASE 0.05%50 MCG NASAL (10:57)
[2017-08-14] MEDS ORDERED: IPRAT-ALBUT 0.5-3 ML INH (10:57)
[2017-08-14] MEDS ORDERED: MELATONIN5 M1 PO (11:00)
[2017-08-14] MEDS ORDERED: MILK OF MA2400 MG/10 PO (11:01)
--- NOTE | 2017-08-14 12:19 | NUR ---
PATIENT HAS BEEN ALERT AND ORIENTED TODAY VERY PLEASANT. UP AD SARA IN ROOM, VITAL SIGNS STABLE ON 3.5 LITERS OF OXYGEN THROUGH NASAL CANNULA. PATIENT IS BEING DISCHARGED TO [facility]. FAMILY IS TRANSPORTING PATIENT TO FACILTIY. PATIENT LEFT WITH DAUGHTER VIA WHEELCHAIR TO [facility], REPORT CALLED TO INES AT FACILITY. QUESTIONS ANSWERED FOR FAMILY AND FACILITY.
[2017-08-14 12:31] VITALS: BP 147/73
== END 2017-08-14 12:20 | DRG 177 ==
LOC: M.ERS 08:53 → M.3W 10:22 → M.TBA-ER 10:22 → M.3W 12:20
PROVIDERS: Emergency Medicine; Internal Medicine Pulmonary Disease; ADMIT Internal Medicine
PROC: 5A09357 Assistance with Respiratory Ventilation, Less than 24 Consecutive Hours, Continuous Positive Airway Pressure (ICD-10-PCS; principal; 2017-08-08)
PROC: 5A09357 Assistance with Respiratory Ventilation, Less than 24 Consecutive Hours, Continuous Positive Airway Pressure (ICD-10-PCS; 2017-08-09)
DX: J15.6 Pneumonia due to other Gram-negative bacteria (principal); J96.21 Acute and chronic respiratory failure with hypoxia; J96.22 Acute and chronic respiratory failure with hypercapnia; G93.40 Encephalopathy, unspecified; J44.0 Chronic obstructive pulmonary disease with (acute) lower respiratory infection; D64.9 Anemia, unspecified; M40.209 Unspecified kyphosis, site unspecified; F17.210 Nicotine dependence, cigarettes, uncomplicated; G31.84 Mild cognitive impairment of uncertain or unknown etiology; I10 Essential (primary) hypertension; Z86.711 Personal history of pulmonary embolism; Z79.2 Long term (current) use of antibiotics; Z79.82 Long term (current) use of aspirin; Z79.899 Other long term (current) drug therapy; Z88.5 Allergy status to narcotic agent; Z99.81 Dependence on supplemental oxygen; Z85.118 Personal history of other malignant neoplasm of bronchus and lung; Z82.49 Family history of ischemic heart disease and other diseases of the circulatory system

== ENCOUNTER 2017-11-23 14:36 | Emergency (ER) | payer OTHER, MEDICAID ==
[~2017-11-23] VITALS: Ht 165.1 cm; Wt 79.4 kg
[~2017-11-23 14:36] MED LIST changes: +CARVEDILOL12.5 MG PO; +FLONASE 0.05%50 MCG NASAL; +HYDROCODON-ACE1 EAC7 PO; +IPRAT-ALBUT 0.5-3 ML INH; +LEVAQUIN 500 M500 M2 PO; +MELATONIN5 M1 PO; +MILK OF MA2400 MG/10 PO; +PROBIOTIC1 EAC4 PO; +PROTONIX 20 MG20 M1 PO
[2017-11-23] MEDS ORDERED: COLACE100 MG PO (14:51)
[2017-11-23] MEDS ORDERED: SPIRIVA RESPIMAT4 G1 PO (14:51)
[2017-11-23] MEDS ORDERED: NYSTATIN100000 UNI PO (14:52)
[2017-11-23] MEDS ORDERED: MUCINEX600 MG PO (14:53)
[2017-11-23] MEDS ORDERED: SLOW FE142 MG PO (14:53)
[2017-11-23 15:14] LABS: HEMATOCRIT 31.6 % (37.0-47.0); HEMOGLOBIN 10.2 gm/dL (12.0-15.0); MCH 31.2 pg (26.0-34.0); MCHC 32.3 g/dL (28.0-37.0); MCV 96.7 fL (80.0-100.0); NUCLEATED RBCS 0 /100WBC; PLATELET COUNT* 394 thou/uL (150-400); RBC 3.27 mil/uL (4.20-5.00); RDW-CV 14.9 % (10.5-14.5); WBC 11.8 thou/uL (4.0-11.0)
[2017-11-23 15:19] LABS: ANION GAP 5 mmol/L (7-16); BUN 23 mg/dL (7-18); CALCIUM 8.8 mg/dL (8.5-10.1); CHLORIDE 97 mmol/L (98-107); CO2 35 mmol/L (21-32); CREATININE 0.7 mg/dL (0.6-1.3); GLUCOSE 130 mg/dL (70-99); POTASSIUM 4.5 mmol/L (3.5-5.1); PROTIME 9.4 Seconds (9.20-11.50); SODIUM 137 mmol/L (136-145)
[2017-11-23 15:30] LABS: ALBUMIN 3.4 g/dL (3.4-5.0); ALKALINE PHOSPHATASE 66 U/L (46-116); LIPASE 187 U/L (73-393); NT-PRO BRAIN NAT PEPTIDE 225 pg/mL (<300); SGOT 17 U/L (15-37); SGPT 22 U/L (30-65); TOTAL BILIRUBIN 0.2 mg/dL (<0.1-1.0); TOTAL PROTEIN 6.6 g/dL (6.4-8.2); TROPONIN-I LEVEL <0.06 ng/mL (<0.06)
[2017-11-23 15:37] LABS: ABSOLUTE LYMPHOCYTES 0.6 thou/uL (0.8-5.3); ABSOLUTE MONOCYTES 0.2 thou/uL (0.0-1.2); PLATELET ESTIMATE ADEQUATE
[2017-11-23 15:39] LABS: URINE BILIRUBIN NEGATIVE (Negative); URINE BLOOD NEGATIVE (Negative); URINE CLARITY CLEAR; URINE COLOR YELLOW; URINE GLUCOSE-RANDOM NEGATIVE (Negative); URINE KETONES NEGATIVE (Negative); URINE LEUKOCYTES-REFLEX NEGATIVE (Negative); URINE NITRITE-REFLEX NEGATIVE (Negative); URINE PROTEIN NEGATIVE (Negative); URINE UROBILINOGEN 0.2 E.U./dl (0.2-1.0)
--- NOTE | 2017-11-23 16:33 | EKG ---
[place] [address] ELECTROCARDIOGRAM REPORT Name: MARIPOSA ORTA Room: [facility]#: [id number] Admission: 11/23/17 Attend Phys: Discharge: Date of : 40 Report #: [id number] THIS REPORT FOR: //name// [facility] ED Test Date: 2017-11-23 Test Time: 15:06:44 Pat Name: MARIPOSA ORTA Department: Room: Gender: F Occupational Analyst: Piotr DOWLING : 1940 Requested By: Valentino Ashley Order Number: [id number] MD: Edwin Villa Measurements Intervals [place] Rate: 66 P: 31 [place]: 179 QRS: -17 QRSD: 135 T: 119 QT: 442 QTc: 464 Interpretive Statements Sinus rhythm Atrial premature complex Left bundle branch block Compared to ECG 08/08/2017 08:57:33 No significant changes Electronically Signed On 11-23-2017 16:32:48 CDT by Edwin Villa [email or web address] <ELECTRONICALLY SIGNED> By: Edwin Villa MD, [facility] 11/23/17 1632 1506 1506 Edwin Villa MD, FACC /EPI
[2017-11-23] MEDS ORDERED: FERROUS SULFAT325 MG PO (16:36)
[2017-11-23] MEDS ORDERED: SPIRIVA INH (16:37)
[2017-11-23] MEDS ORDERED: VANCOMYCIN125 MG/2.1 PO (16:38)
[2017-11-23] MEDS ORDERED: MILK OF MA2400 MG/10 PO (16:41)
[2017-11-23] MEDS ORDERED: TESSALON PERLE100 MG PO (16:41)
[2017-11-23] MEDS ORDERED: PROAIR RESPICL90 MCG INH (16:43)
[2017-11-23 20:25] VITALS: BP 166/77
== END 2017-11-23 20:28 | disposition home or self-care (01) ==
LOC: M.ERS 14:36
PROVIDERS: Emergency Medicine
DX: R20.0 Anesthesia of skin (principal); R20.2 Paresthesia of skin; J44.9 Chronic obstructive pulmonary disease, unspecified; I10 Essential (primary) hypertension; M79.7 Fibromyalgia; G62.9 Polyneuropathy, unspecified; Z86.2 Personal history of diseases of the blood and blood-forming organs and certain disorders involving the immune mechanism; Z86.711 Personal history of pulmonary embolism; Z90.711 Acquired absence of uterus with remaining cervical stump; Z96.653 Presence of artificial knee joint, bilateral; Z88.5 Allergy status to narcotic agent

== ENCOUNTER 2018-02-05 18:38 | Inpatient (IN) | payer OTHER, MEDICAID ==
[~2018-02-05] VITALS: Ht 162.6 cm; Wt 80.3 kg
[~2018-02-05 18:38] MED LIST changes: +COLACE100 MG PO; +FERROUS SULFAT325 MG PO; +MUCINEX600 MG PO; +NYSTATIN100000 UNI PO; +PROAIR RESPICL90 MCG INH; +SPIRIVA RESPIMAT4 G1 PO; +TESSALON PERLE100 MG PO; +VANCOMYCIN125 MG/2.1 PO
[2018-02-05] MEDS ORDERED: BREO ELLIPTA 21 EACH INH (18:53)
[2018-02-05] MEDS ORDERED: BROVANA15 MCG/2 M INH (18:53)
[2018-02-05] MEDS ORDERED: PULMICORT0.5 MG/22 INH (18:54)
[2018-02-05] MEDS ORDERED: DALIRESP500 MCG PO (18:55)
[2018-02-05] MEDS ORDERED: LISINOPRIL5 MG PO (18:56)
[2018-02-05] MEDS ORDERED: SINGULAIR 10 MG10 MG PO (18:57)
[2018-02-05] MEDS ORDERED: PROTONIX40 M1 PO (18:58)
[2018-02-05] MEDS ORDERED: ZANTAC 150MG T150 MG PO (18:58)
[2018-02-05 19:14] LABS: ABSOLUTE BASOPHILS 0.1 thou/uL (0.0-0.2); ABSOLUTE EOSINOPHILS 0.2 thou/uL (0.0-0.7); ABSOLUTE LYMPHOCYTES 0.8 thou/uL (0.8-5.3); ABSOLUTE MONOCYTES 0.7 thou/uL (0.0-1.2); BASOPHILS 0.8 %; EOSINOPHILS 2.7 %; HEMATOCRIT 24.9 % (37.0-47.0); HEMOGLOBIN 7.9 gm/dL (12.0-15.0); LYMPHOCYTES 11.7 %; MCH 29.7 pg (26.0-34.0); MCHC 31.8 g/dL (28.0-37.0); MCV 93.4 fL (80.0-100.0); MONOCYTES 10.1 %; MPV 7.6 fl. (7.2-11.1); NUCLEATED RBCS 0 /100WBC; PLATELET COUNT* 321 thou/uL (150-400); POLYS 74.7 %; RBC 2.67 mil/uL (4.20-5.00); RDW-CV 18.9 % (10.5-14.5); WBC 6.6 thou/uL (4.0-11.0)
[2018-02-05 19:21] LABS: ANION GAP 3 mmol/L (7-16); BUN 29 mg/dL (7-18); CALCIUM 8.2 mg/dL (8.5-10.1); CHLORIDE 99 mmol/L (98-107); CO2 33 mmol/L (21-32); CREATININE 0.9 mg/dL (0.6-1.3); GLUCOSE 91 mg/dL (70-99); SODIUM 135 mmol/L (136-145)
[2018-02-05 19:28] LABS: ALBUMIN 3.1 g/dL (3.4-5.0); ALKALINE PHOSPHATASE 59 U/L (46-116); LIPASE 212 U/L (73-393); SGOT 24 U/L (15-37); SGPT 20 U/L (30-65); TOTAL BILIRUBIN 0.2 mg/dL (<0.1-1.0); TOTAL PROTEIN 6.5 g/dL (6.4-8.2); TROPONIN-I LEVEL <0.06 ng/mL (<0.06)
[2018-02-05 21:44] LABS: URINE BILIRUBIN NEGATIVE (Negative); URINE BLOOD NEGATIVE (Negative); URINE CLARITY CLEAR; URINE COLOR STRAW; URINE GLUCOSE-RANDOM NEGATIVE (Negative); URINE KETONES NEGATIVE (Negative); URINE LEUKOCYTES-REFLEX NEGATIVE (Negative); URINE NITRITE-REFLEX NEGATIVE (Negative); URINE PROTEIN NEGATIVE (Negative); URINE SPECIFIC GRAVITY <= 1.005 (1.005-1.030); URINE UROBILINOGEN 0.2 E.U./dl (0.2-1.0)
[2018-02-05 22:04] VITALS: BP 109/41
[2018-02-05 22:40] VITALS: BP 128/45
[2018-02-06 04:00] VITALS: BP 138/68
[2018-02-06 08:00] VITALS: BP 154/83
--- NOTE | 2018-02-06 11:09 | EKG ---
[place] [address] ELECTROCARDIOGRAM REPORT Name: MARIPOSA ORTA Room: [address] ADM IN .R.#: [id number] Admission: 02/05/18 Attend Phys: Roxanne Tidwell MD Discharge: Date of : 40 Report #: [id number] THIS REPORT FOR: //name// [facility] ED Test Date: 2018-02-05 Test Time: 19:16:12 Pat Name: MARIPOSA ORTA Department: Room: [facility] Gender: F Web Site Admin: [place] : 1940 Requested By: Ignacio Gagnon Order Number: [id number] MD: Darwin Hassan Measurements Intervals [place] Rate: 68 P: 49 [place]: 179 QRS: -12 QRSD: 94 T: 53 QT: 392 QTc: 417 Interpretive Statements Sinus rhythm Abnormal R-wave progression, early transition Compared to ECG 11/23/2017 15:06:44 Atrial premature complex(es) no longer present Left bundle-branch block no longer present Electronically Signed On 02-06-2018 11:08:43 CDT by Darwin Hassan [email or web address] <ELECTRONICALLY SIGNED> By: Darwin Hassan MD, FAC 02/06/18 1108 15 15 Darwin Hassan MD, FAC /EPI
[2018-02-06 11:37] VITALS: BP 143/74
[2018-02-06 15:42] VITALS: BP 150/63
--- NOTE | 2018-02-06 16:35 | 2DMMODE ---
[place] [address] 2 D/M-MODE ECHOCARDIOGRAM Name: YOUMARIPOSAJohn LUA Room: [address] IN [facility]#: [id number] Admission: 02/05/18 Attend Phys: Roxanne Tidwell, Discharge: Date of : 40 Date of Service: 02/06/18 1635 Report #: [id number] THIS REPORT FOR: //name// APPROVED REPORT Study performed: 02/06/2018 15:36:38 EXAM: Comprehensive 2D, Doppler, and color-flow Echocardiogram Patient Location: In-Patient Room #: [facility] Status: routine BSA: 1.85 HR: 92 bpm BP: 143/74 mmHg Rhythm: NSR Other Information Study Quality: GoodTechnically Limited Indications Dyspnea 2D Dimensions LVEF(%): 74.97 (>50%) IVSd: 11.48 (7-11mm) LVOT Diam: 20.79 (18-24mm) LVDd: 45.29 mm PWd: 11.41 (7-11mm) Ascending Ao: 36.35 (22-36mm) LVDs: 25.52 (25-40mm) Aortic Root: 32.31 mm Mcarthur's LVEF: 74.97 % Volumes Left Atrial Volume (Systole) LA ESV Index: 56.80 mL/m2 Aortic Valve AoV Peak Joni.: 2.59 m/s AO Peak Gr.: 26.92 mmHg LVOT Max P.26 mmHg AO Mean Gr.: 14.67 mmHg LVOT Mean P.28 mmHg LVOT Max V: 1.25 m/s AO V2 VTI: 49.43 cm LVOT Mean V: 0.84 m/s LEESA (VTI): 1.85 cm2 LVOT V1 VTI: 27.00 cm Mitral Valve E/A Ratio: 0.65 [place] [address] 2 D/M-MODE ECHOCARDIOGRAM Name: YOUMARIPOSAJohn LUA Room: [address] IN [facility].#: [id number] Admission: 02/05/18 Attend Phys: Roxanne Tidwell, Discharge: Date of : 40 Date of Service: 02/06/18 1635 Report #: [id number] MV Decel. Time: 221.70 ms MV E Max Joni.: 1.09 m/s MV PHT: 64.29 ms MVA (PHT): 3.42 cm2 TDI E/Lateral E': 15.57 E/Medial E': 15.57 Medial E' Joni.: 0.07 m/s Lateral E' Joni.: 0.07 m/s Pulmonary Valve PV Peak Joni.: 1.58 m/s PV Peak Gr.: 9.98 mmHg Tricuspid Valve RAP Estimate: 5.00 mmHg TR Peak Gr.: 34.71 mmHg RVSP: 39.71 mmHg PA Pressure: 39.71 mmHg Left Ventricle The left ventricle is normal size. There is normal LV segmental wall motion. Moderate concentric left ventricular hypertrophy. Left ventricular systolic function is normal. The left ventricular ejection fraction is within the normal range. LVEF is 60-65%. Grade II - pseudonormal filling dynamics. Right Ventricle The right ventricle is normal size. The right ventricular systolic function is normal. Atria Left atrium is severely dilated. The right atrium size is normal. Aortic Valve Aortic valve leaflets are moderately thickened. Trace aortic regurgitation. Mild to moderate aortic stenosis. Mitral Valve There is mitral annular calcification. There is no mitral valve regurgitation noted. No evidence of mitral valve stenosis. Tricuspid Valve The tricuspid valve is normal in structure. Mild tricuspid regurgitation. Mild pulmonary hypertension[place] [address] 2 D/M-MODE ECHOCARDIOGRAM Name: MARIPOSA ORTA Room: [address] IN [facility].#: [id number] Admission: 02/05/18 Attend Phys: Roxanne Tidwell, Discharge: Date of : 40 Date of Service: 02/06/18 1635 Report #: [id number] The pulmonary valve is normal in structure. There is no pulmonic valvular regurgitation. Great Vessels The aortic root is normal in size. IVC is normal in size and collapses with >50% inspiration Pericardium There is no pericardial effusion. <Conclusion> The left ventricle is normal size. Moderate concentric left ventricular hypertrophy. There is normal LV segmental wall motion. LVEF is 60-65%. Grade II - pseudonormal filling dynamics. Left atrium is severely dilated. Mild to moderate aortic stenosis. Trace aortic regurgitation. There is mitral annular calcification. There is no mitral valve regurgitation noted. No evidence of mitral valve stenosis. Mild tricuspid regurgitation. Mild pulmonary hypertension. There is no pericardial effusion. <ELECTRONICALLY SIGNED> By: Darwin Hassan MD, FACC 02/06/18 1635 [id number] Darwin Hassan MD, FACC /INF
[2018-02-06 19:30] VITALS: BP 120/54
[2018-02-07] VITALS: BP 116/61
[2018-02-07 04:00] VITALS: BP 139/74
[2018-02-07 05:03] LABS: HEMATOCRIT 23.6 % (37.0-47.0); HEMOGLOBIN 7.5 gm/dL (12.0-15.0); MCH 29.7 pg (26.0-34.0); MCHC 31.6 g/dL (28.0-37.0); MCV 93.8 fL (80.0-100.0); MPV 8.1 fl. (7.2-11.1); NUCLEATED RBCS 0 /100WBC; PLATELET COUNT* 306 thou/uL (150-400); RBC 2.52 mil/uL (4.20-5.00); RDW-CV 18.6 % (10.5-14.5); WBC 7.2 thou/uL (4.0-11.0)
[2018-02-07 05:19] LABS: CALCIUM 8.6 mg/dL (8.5-10.1); CREATININE 0.7 mg/dL (0.6-1.3); POTASSIUM 4.8 mmol/L (3.5-5.1)
[2018-02-07 05:54] LABS: ABSOLUTE LYMPHOCYTES 0.6 thou/uL (0.8-5.3); ABSOLUTE MONOCYTES 0.1 thou/uL (0.0-1.2); ABSOLUTE NEUTROPHILS 6.6 thou/uL (1.6-8.1); ANISOCYTOSIS 1+; PLATELET ESTIMATE ADEQUATE; POIKILOCYTOSIS 1+
[2018-02-07 08:10] VITALS: BP 166/83
[2018-02-07 12:05] VITALS: BP 150/78
--- NOTE | 2018-02-07 15:19 | CON ---
[address] [address] CONSULTATION Name: YOUMARIPOSA LUA Room: [address] IN ..#: [id number] Admission: 02/05/18 Attend Phys: Roxanne Tidwell MD Discharge: Date of : 40 Report #: [id number] THIS REPORT FOR: //name// CC: Roxanne Andrade DATE OF SERVICE: 02/06/2018 CONSULT REQUESTED BY: Dr. Mendez. INDICATION FOR CONSULTATION: Shortness of breath. HISTORY OF PRESENT ILLNESS: This 77-year-old female, past medical history includes a history of oxygen-dependent COPD. The patient is a resident of a long-term care facility. The patient also has a history of multiple episodes of C. difficile colitis in the past and is on suppressive therapy for C. diff, has had a history of lung cancer in 2011 as well as issues with fluid overload as well. I, in fact, recently saw her in the office in November. At that time, the patient was reported to be on 40 mg of prednisone daily for her COPD since September. I had recommended that we should gradually bring this dose down to eventually attempt to reach 10 mg every other day. It is not known to me as to what dose the patient was on immediately prior to this admission. The patient also previously had refused therapy with BiPAP; however, she had agreed in November and we did recommend setting one up at her long-term care facility. The patient says that it was set up and she was using it regularly. The patient now reports having had increasing shortness of breath as well as some increase in swelling of lower extremities, which is the reason that she was transferred here. She has a cough but there is no sputum. There is no chest pain. There are no upper respiratory complaints. Lower extremity swelling appears to be only mild. The patient does not appear to be having any abdominal complaints now; however, she did report abdominal pain as well as nausea on initial presentation and did have a CT of the abdomen and pelvis performed upon admission. She answers to the negative for 12 questions for review of systems, except as mentioned above. PAST MEDICAL HISTORY: COPD, oxygen-dependent and also was on a fairly large dose of prednisone, which I recommended that we taper as mentioned above. Obstructive sleep apnea, on a BiPAP while asleep, I do not have her settings at this time, the patient reports regular use of BiPAP. C. difficile colitis, on long-term suppressive therapy with vancomycin orally due to multiple episodes of C. difficile colitis. 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 Degenerative joint disease, fibromyalgia, [place] [address] CONSULTATION Name: YOUMARIPOSAJohn LUA Room: [address] IN [facility].#: [id number] Admission: 02/05/18 Attend Phys: Roxanne Tidwell MD Discharge: Date of : 40 Report #: [id number] vascular disease, pulmonary emboli, chronic venous disease status post vein stripping, bundle-branch block, depression, neuropathy, hypertension, irritable bowel syndrome, left knee surgery, hysterectomy, bunionectomy. The patient's last available echocardiogram is from 2011 and shows a left ventricular ejection fraction of 55%-60% without elevation in right heart pressures. SOCIAL HISTORY: The patient now states that she has not smoked for several years; however, there is previous documentation of her smoking at least up until May of last year. There is no known history of heavy alcohol use or illegal drug use. FAMILY HISTORY: Negative for premature cardiopulmonary disease. CURRENT MEDICATIONS: List in [facility] reviewed. HOME MEDICATIONS: List in [facility] also reviewed. See discussion regarding oral vancomycin and prednisone as mentioned above. ALLERGIES: She is intolerant of CODEINE. FAMILY HISTORY: Negative for premature cardiopulmonary disease. PHYSICAL EXAMINATION: GENERAL: She is alert, awake and oriented. VITAL SIGNS: Has a pulse of 97 and a blood pressure of 143/74. She is saturating in the high 90s. She is on 3 liters nasal cannula. Respiratory rate is around 20. She is afebrile with a temperature of 36.6. HEENT: Head is normocephalic and atraumatic. Pupils are equal and reactive. There is no throat erythema. NECK: Does not show raised JVP, asymmetry, mass or lymph nodes. CHEST: Symmetrical expansion on inspection and palpation. On auscultation, breath sounds bilaterally equal. No added sounds. HEART: Regular. There is no murmur. ABDOMEN: Soft and nontender. EXTREMITIES: Lower extremities show trace edema only. There is no calf tenderness. SKIN: Dry and intact. NEUROLOGICAL: Moves all extremities bilaterally equally and spontaneously. There is no focal deficit identified. LABORATORY DATA: The patient did have a CT abdomen and pelvis, there are vague radiopaque densities at bilateral lung bases. I do not, however, see any definite infiltrate. CT report is also reviewed, the patient's lab work is in [facility] and does show anemia, this is also reviewed. ASSESSMENT AND PLAN: [place] [address] CONSULTATION Name: MARIPOSA ORTA Room: [address] [facility] IN [facility]#: [id number] Admission: 02/05/18 Attend Phys: Roxanne Tidwell MD Discharge: Date of : 40 Report #: [id number] 1. Ksuxm-ba-ozpozrb hypoxemic respiratory failure. Etiology of the patient's decompensation is not fully defined at this time. At this time, there is no definite evidence of pneumonia. The patient reported swelling of lower extremities; however, swelling of lower extremities is minimal. She has had some bronchospasm. The patient is on a BiPAP long-term, the same is ordered again. 2. Chronic obstructive pulmonary disease exacerbation. She is on Solu-Medrol as well as nebulized bronchodilators, and I agree with the same. We will continue. Noted is that she was on 40 mg of prednisone daily between September and November. At this time, I would plan to continue her on long-term prednisone. However, the plan is to taper down prednisone to 10 mg every other day. 3. Squamous cell carcinoma lung/atelectasis/possible infiltrates. I will go ahead and do a CT chest without contrast. It is noted that she is on ceftriaxone for now, I do not see any large infiltrates on her imaging performed so far. 4. Swelling of lower extremities only mild, unlikely to be playing a major role; however, I will do an echo. We will also do venous Dopplers. Note that the patient does have a previous history of pulmonary emboli and at one time was on long-term anticoagulation. 5. Recurrent Clostridium difficile colitis. She is on suppressive therapy. 6. Anemia, unknown to me what workup has been performed previously, would defer to the primary service regarding further workup. She is on a proton pump inhibitor and I agree with the same and we will continue. 7. Gastroesophageal reflux disease, see discussion above. Thanks for this consultation. <ELECTRONICALLY SIGNED> By: Ken Gauthier MD 02/07/18 1519 1437 [id number] Gauthier MD /nt
[2018-02-07 16:05] VITALS: BP 153/62
[2018-02-07 19:50] VITALS: BP 170/86
[2018-02-08] VITALS (7 sets, daily range): BP systolic 129–178; BP diastolic 67–94
[2018-02-08 04:59] LABS: ABSOLUTE LYMPHOCYTES 0.5 thou/uL (0.8-5.3); ABSOLUTE MONOCYTES 0.2 thou/uL (0.0-1.2); ABSOLUTE NEUTROPHILS 6.6 thou/uL (1.6-8.1); BASOPHILS 0.1 %; HEMATOCRIT 23.6 % (37.0-47.0); HEMOGLOBIN 7.5 gm/dL (12.0-15.0); MCH 29.6 pg (26.0-34.0); MCHC 31.9 g/dL (28.0-37.0); MCV 92.9 fL (80.0-100.0); MONOCYTES 2.2 %; MPV 7.9 fl. (7.2-11.1); NUCLEATED RBCS 0 /100WBC; PLATELET COUNT* 333 thou/uL (150-400); POLYS 90.7 %; RBC 2.54 mil/uL (4.20-5.00); RDW-CV 18.7 % (10.5-14.5); WBC 7.3 thou/uL (4.0-11.0)
[2018-02-08 05:16] LABS: ALBUMIN 2.6 g/dL (3.4-5.0); CALCIUM 9.2 mg/dL (8.5-10.1); CREATININE 0.6 mg/dL (0.6-1.3); POTASSIUM 4.3 mmol/L (3.5-5.1); TOTAL BILIRUBIN 0.1 mg/dL (<0.1-1.0)
[2018-02-09 03:45] VITALS: BP 141/76
[2018-02-09 05:01] LABS: ALBUMIN 2.8 g/dL (3.4-5.0); CALCIUM 8.5 mg/dL (8.5-10.1); CREATININE 0.8 mg/dL (0.6-1.3); POTASSIUM 4.3 mmol/L (3.5-5.1); TOTAL BILIRUBIN 0.2 mg/dL (<0.1-1.0)
[2018-02-09 05:02] LABS: ABSOLUTE LYMPHOCYTES 0.9 thou/uL (0.8-5.3); ABSOLUTE MONOCYTES 0.6 thou/uL (0.0-1.2); ABSOLUTE NEUTROPHILS 5.7 thou/uL (1.6-8.1); BASOPHILS 0.1 %; HEMATOCRIT 24.2 % (37.0-47.0); HEMOGLOBIN 7.8 gm/dL (12.0-15.0); LYMPHOCYTES 12.3 %; MCH 29.7 pg (26.0-34.0); MCHC 32.2 g/dL (28.0-37.0); MCV 92.3 fL (80.0-100.0); MONOCYTES 8.5 %; NUCLEATED RBCS 0 /100WBC; PLATELET COUNT* 354 thou/uL (150-400); POLYS 79.1 %; RBC 2.62 mil/uL (4.20-5.00); RDW-CV 18.5 % (10.5-14.5); WBC 7.2 thou/uL (4.0-11.0)
[2018-02-09 08:12] VITALS: BP 167/90
[2018-02-09 11:21] VITALS: BP 141/60
[2018-02-09 15:30] VITALS: BP 173/82
[2018-02-09 20:00] VITALS: BP 163/73
[2018-02-10] VITALS: BP 128/68
[2018-02-10 04:00] VITALS: BP 170/86
[2018-02-10 04:57] LABS: HEMATOCRIT 26.4 % (37.0-47.0); HEMOGLOBIN 8.3 gm/dL (12.0-15.0); MCHC 31.4 g/dL (28.0-37.0); MCV 92.6 fL (80.0-100.0); MPV 8.1 fl. (7.2-11.1); RBC 2.85 mil/uL (4.20-5.00); RDW-CV 18.4 % (10.5-14.5); WBC 5.1 thou/uL (4.0-11.0)
[2018-02-10 05:07] LABS: ALBUMIN 2.7 g/dL (3.4-5.0); CREATININE 0.7 mg/dL (0.6-1.3); POTASSIUM 4.1 mmol/L (3.5-5.1); TOTAL BILIRUBIN 0.1 mg/dL (<0.1-1.0); TOTAL PROTEIN 6.1 g/dL (6.4-8.2)
[2018-02-10 07:56] VITALS: BP 167/84
[2018-02-10 12:16] VITALS: BP 154/54
[2018-02-10 16:51] VITALS: BP 138/60
[2018-02-10 20:00] VITALS: BP 152/75
[2018-02-11] VITALS: BP 110/79
[2018-02-11 04:00] VITALS: BP 117/81
[2018-02-11 08:00] VITALS: BP 161/87
[2018-02-11 12:00] VITALS: BP 136/84
[2018-02-11 16:03] VITALS: BP 129/53
[2018-02-11 19:30] VITALS: BP 139/48
[2018-02-12] VITALS: BP 155/72
[2018-02-12 04:00] VITALS: BP 134/71
[2018-02-12 05:06] LABS: HEMATOCRIT 25.9 % (37.0-47.0); HEMOGLOBIN 8.3 gm/dL (12.0-15.0); MCH 29.5 pg (26.0-34.0); MCHC 31.9 g/dL (28.0-37.0); MCV 92.4 fL (80.0-100.0); MPV 7.7 fl. (7.2-11.1); NUCLEATED RBCS 0 /100WBC; PLATELET COUNT* 443 thou/uL (150-400); RBC 2.81 mil/uL (4.20-5.00); RDW-CV 18.2 % (10.5-14.5)
[2018-02-12 05:16] LABS: ALBUMIN 2.8 g/dL (3.4-5.0); CALCIUM 8.4 mg/dL (8.5-10.1); CREATININE 0.6 mg/dL (0.6-1.3); MAGNESIUM 2.2 mg/dL (1.8-2.4); POTASSIUM 4.2 mmol/L (3.5-5.1); TOTAL BILIRUBIN 0.1 mg/dL (<0.1-1.0)
[2018-02-12 05:40] LABS: ABSOLUTE EOSINOPHILS 0.1 thou/uL (0.0-0.7); ABSOLUTE LYMPHOCYTES 1.1 thou/uL (0.8-5.3); ABSOLUTE MONOCYTES 0.5 thou/uL (0.0-1.2); ABSOLUTE NEUTROPHILS 4.3 thou/uL (1.6-8.1)
[2018-02-12 05:42] LABS: ANISOCYTOSIS 1+; PLATELET ESTIMATE INCREASED
[2018-02-12 08:00] VITALS: BP 164/66
[2018-02-12 12:00] VITALS: BP 114/55
[2018-02-12] MEDS ORDERED: FOLIC ACID1 MG PO (14:05)
[2018-02-12] MEDS ORDERED: FLORASTOR250 MG PO (14:05)
[2018-02-12] MEDS ORDERED: PREDNISONE 20 M20 MG PO (14:06)
[2018-02-12] MEDS ORDERED: CEFDINIR300 MG PO (14:08)
[2018-02-12 15:28] VITALS: BP 114/55
[2018-02-12 16:06] VITALS: BP 139/68
--- NOTE | 2018-02-19 15:10 | CON ---
[facility] [address] [place] [address] CONSULTATION Name: MARIPOSA ORTA Room: [address] IN M.R.#: [id number] Admission: 02/05/18 Attend Phys: Roxanne Tidwell MD Discharge: 02/12/18 Date of : 40 Report #: [id number] THIS REPORT FOR: //name// CC: Ken Dsouza MD DATE OF SERVICE: 02/11/2018 REFERRING PHYSICIAN: Roxanne Tidwell M.D. and Michael Dsouza MD. REASON FOR CONSULTATION: Anemia. IMPRESSION: 1. Microcytic anemia, suspicious for iron deficiency anemia -- suspect it may be related to a large hiatal hernia with associated Isac erosions and/or ulcers. 2. History of recurrent Clostridium difficile for which the patient has undergone previous colonoscopy with fecal transplant in [place] within the last 3 years. 3. Severe chronic obstructive pulmonary disease, which is oxygen dependent. 4. Personal history of lung cancer with the patient having undergone radiation for the same. 5. History of some type of rectal surgery, possible rectal prolapse for which the patient has had intervention for the same. RECOMMENDATIONS: 1. Agree with the patient getting IV iron infusions at this time to help with her blood counts. 2. The patient is currently not a candidate for sedation due to the severity of her chronic obstructive pulmonary disease. She has been hospitalized multiple times for hyperbaric hypoxemic respiratory failure for which nocturnal BiPAP had been prescribed. 3. In the interim, I would recommend we just begin her on some Protonix or Prilosec 40 mg twice daily for at least 3 months to help with any erosions and/or ulcers that may be noted within her upper GI tract from her large hiatal hernia. 4. We will schedule the patient for an upper GI series with Radiology to be done tomorrow, but if she is going to be discharged today, this can be done as an outpatient. 5. The patient states that she has records from her previous endoscopic studies in [place] that she can bring when she comes in for office visit, but she does not remember when or where they were done, but she was convinced that these occurred within the last few years. At the present time, [place] [address] CONSULTATION Name: MARIPOSA ORTA Room: [address]#: [id number] Admission: 02/05/18 Attend Phys: Roxanne Tidwell MD Discharge: 02/12/18 Date of : 40 Report #: [id number] performing any endoscopic studies at this time and would only reserve it for overt gastrointestinal bleeding. 6. I have discussed those plans with the patient as well as her daughter at the bedside and they are agreeable to the same. HISTORY OF PRESENT ILLNESS: The patient is a pleasant 77-year-old white female who was admitted to hospital with complaints of shortness of breath and found to have a fairly significant anemia. She has history of rather severe COPD for which she has been hospitalized multiple times and has had to be on steroids plus BiPAP for problems related to the same. She has a history of lung cancer for which she underwent treatment for the same, chronic respiratory failure for which she is on chronic oxygen and a multitude of other issues. She is on chronic vancomycin for recurrent C. diff and gets it on every other day basis. With regards to her GI tract, she does admit to some issues with feeling as if things get stuck or that she has issues with feeling full after meals with some nausea, but no vomiting. She denies any heartburn or indigestion. She denies any dysphagia, odynophagia, but states that she had her esophagus stretched a few years ago in [place], but does not have the details of the same. She is not sure if it was related to the radiation treatments that she received for her lung cancer or related to ____ or other issues. She denies any hematemesis, melena or hematochezia. She denies any problem with her bowels or bowel frequency. She has been on chronic prophylaxis with vancomycin due to her recurrent bouts of C. diff and as I mentioned above, she underwent a colonoscopy with fecal transplant in [place] within the last few years. She has no known family history of any colon polyps or colon cancer. Her weight has been stable. ALLERGIES: CEPHALEXIN AND CODEINE. MEDICATIONS: At home include Colace, Spiriva, vancomycin, Tessalon Perles, Breo, Brovana, Pulmicort, Daliresp, Zestril, Singulair, Zantac, potassium, Aylin aspirin, ipratropium bromide, , Mucinex, ferrous sulfate, Protonix twice daily, multivitamin with iron. PAST MEDICAL HISTORY: Significant for COPD, which is oxygen dependent, hypertension, history of pneumonia for which she was hospitalized back in May this year and had to be on BiPAP treatments. History of remote PE, chronic anemia. She had partial hysterectomy, knee replacement, bladder suspension, C. diff with fecal transplant as I mentioned above. SOCIAL HISTORY: The patient is a previous smoker, she quit about over a year ago, does not drink alcohol. FAMILY HISTORY: Negative for GI malignancy. [address] [address] CONSULTATION Name: MARIPOSA ORTA Room: [address] IN .R.#: [id number] Admission: 02/05/18 Attend Phys: Roxanne Tidwell MD Discharge: 02/12/18 Date of : 40 Report #: [id number] PHYSICAL EXAMINATION: GENERAL: Revealed a pleasant 77-year-old white female who is awake and alert. CARDIOPULMONARY EXAMINATION: Revealed a regular rate and rhythm. LUNGS: Diminished. ABDOMEN: Soft and not tender. No rebound or guarding noted. DATA: Her laboratory from yesterday revealed a white count of 5.1, hemoglobin 8.3, platelet count 400,000, MCV is 92.6, RDW is 18.4. In reviewing her hemoglobin, it is definitely lower than it was back in July of this year when it was as high as 11.8. Her sodium is 139, potassium 4.1, chloride 103, bicarbonate is 32, BUN is 18, creatinine 0.7. Her GFR is 81. Total bilirubin is 0.1, alkaline phosphatase 46, AST is 15, ALT 22, albumin is 2.7. Iron saturation is low at 9%, but her ferritin is normal at 68. Folate level was slightly low at 8.1 with normals being 8.6-58.9. Her B12 level is 595. Her C-reactive protein is elevated at 20.3. Her haptoglobin is 288. The patient did undergo full CT scan of the chest, abdomen and pelvis during her hospital stay. I was mostly looking at the abdomen and pelvis done on 02/05/2018 did not see any inflammatory stricture, narrowing or any other issues. She does have fairly large hiatal hernia. This has been a longstanding issue. DISCUSSION: 1. At the present time, patient has evidence for a fairly large hiatal hernia which may be the cause of blood loss. She has rather severe COPD as well. I recommend that we proceed with an upper GI series to better delineate her anatomy, but also to see if there is any obvious ulcers notable from the same, but hold off on any endoscopic studies at this time. 2. We will await the results of the same, wait for her response to iron replacement and have her follow up in the office to see how things are going in several weeks. I have discussed the plans with the patient as well as her family and her daughter and they are agreeable to the same. <ELECTRONICALLY SIGNED> By: Buster Carroll DO 02/19/18 1510 1730 [id number] Carroll DO /nt
== END 2018-02-12 17:10 | DRG 177 ==
LOC: M.ERS 18:38 → M.2W 20:52 → M.TBA-ER 20:52 → M.2W 22:25
PROVIDERS: Family Medicine; Internal Medicine; Internal Medicine Gastroenterology; ADMIT Internal Medicine
PROC: 5A09357 Assistance with Respiratory Ventilation, Less than 24 Consecutive Hours, Continuous Positive Airway Pressure (ICD-10-PCS; principal; 2018-02-06)
PROC: 5A09357 Assistance with Respiratory Ventilation, Less than 24 Consecutive Hours, Continuous Positive Airway Pressure (ICD-10-PCS; 2018-02-08)
PROC: 5A09357 Assistance with Respiratory Ventilation, Less than 24 Consecutive Hours, Continuous Positive Airway Pressure (ICD-10-PCS; 2018-02-09)
PROC: 5A09357 Assistance with Respiratory Ventilation, Less than 24 Consecutive Hours, Continuous Positive Airway Pressure (ICD-10-PCS; 2018-02-10)
DX: J15.6 Pneumonia due to other Gram-negative bacteria (principal); J96.21 Acute and chronic respiratory failure with hypoxia; E43 Unspecified severe protein-calorie malnutrition; I50.21 Acute systolic (congestive) heart failure; J44.0 Chronic obstructive pulmonary disease with (acute) lower respiratory infection; J44.1 Chronic obstructive pulmonary disease with (acute) exacerbation; A04.71 Enterocolitis due to Clostridium difficile, recurrent; M79.7 Fibromyalgia; G62.9 Polyneuropathy, unspecified; K27.9 Peptic ulcer, site unspecified, unspecified as acute or chronic, without hemorrhage or perforation; I11.0 Hypertensive heart disease with heart failure; Z96.653 Presence of artificial knee joint, bilateral; G47.33 Obstructive sleep apnea (adult) (pediatric); M19.90 Unspecified osteoarthritis, unspecified site; I73.9 Peripheral vascular disease, unspecified; F32.9 Major depressive disorder, single episode, unspecified; K58.9 Irritable bowel syndrome, unspecified; K21.9 Gastro-esophageal reflux disease without esophagitis; D50.9 Iron deficiency anemia, unspecified; K44.9 Diaphragmatic hernia without obstruction or gangrene; G31.84 Mild cognitive impairment of uncertain or unknown etiology; Z87.891 Personal history of nicotine dependence; Z92.21 Personal history of antineoplastic chemotherapy; Z92.3 Personal history of irradiation; Z86.711 Personal history of pulmonary embolism; Z90.710 Acquired absence of both cervix and uterus; Z85.118 Personal history of other malignant neoplasm of bronchus and lung; Z68.30 Body mass index [BMI] 30.0-30.9, adult; Z99.81 Dependence on supplemental oxygen; Z79.51 Long term (current) use of inhaled steroids; Z79.82 Long term (current) use of aspirin; Z79.899 Other long term (current) drug therapy; Z88.5 Allergy status to narcotic agent; Z88.8 Allergy status to other drugs, medicaments and biological substances; Z80.8 Family history of malignant neoplasm of other organs or systems